=== PATIENT | female | born 1995 | race Caucasian/White ===

== ENCOUNTER 2018-12-31 02:21 | Emergency (ER) | payer OTHER ==
[2018-12-31 02:39] VITALS: BP 123/68; PULSE 98; TEMP 98.2; BMI 25.4
--- NOTE | 2018-12-31 02:53 | PDOC ---
Attending Attestation - Resident Resident Name: BarronHéctor - ED Attending Attestation I have performed the following: I have examined & evaluated the patient, The case was reviewed & discussed with the resident, I agree w/resident's findings & plan - HPI HPI: 12/31/18 06:40 see resident hpi - Physicial Exam PE: 12/31/18 06:40 agree with resident exam - Medical Decision Making 12/31/18 06:41 23-year-old female with reproducible point tenderness to the left lower ribs after coughing Chest x-ray shows no acute abnormality right pain relieved with Motrin DC
[2018-12-31] MEDS ORDERED: IBUPROFEN 600 MG TABLET (FP) PO ONE ×2 (03:09)
--- NOTE | 2018-12-31 03:28 | PDOC ---
History of Present Illness - General Chief Complaint: Pain, Acute Stated Complaint: LEFT SIDE PAIN Time Seen by Provider: 12/31/18 02:52 History Source: Patient Exam Limitations: No Limitations Past History - Past Medical History Allergies/Adverse Reactions: Allergies Allergy/AdvReac Type Severity Reaction Status Date / Time No Known Allergies Allergy Verified 12/31/18 02:34 Home Medications: Ambulatory Orders NK [No Known Home Medication] 05/26/14 - Immunization History Immunization Up to Date: Yes - Psycho Social/Smoking Cessation Hx Smoking History: Never smoked Have you smoked in the past 12 months: No Information on smoking cessation initiated: No Hx Alcohol Use: No Drug/Substance Use Hx: No Substance Use Type: None *Physical Exam - Vital Signs Last Vital Signs Temp Pulse Resp BP Pulse Ox 98.2 F 98 H 20 123/68 99 12/31/18 02:35 12/31/18 02:35 12/31/18 02:35 12/31/18 02:35 12/31/18 02:35 ED Treatment Course - RADIOLOGY Radiology Studies Ordered: Category Date Time Status CHEST PA & LAT [RAD] Stat Radiology 12/31/18 03:09 Ordered Medical Decision Making - Medical Decision Making 12/31/18 03:12 HPI: 23F no PMH presenting with left lower rib pain x 2 days in setting of a week of nonproductive cough. Worse w/ deep breaths and movements. Atraumatic. Denies cp/ sob, rashes, f/c, n/v/d, dysuria/frequency. Regular appetite. Denies PMH PCP - Dr. Rick ASIF Denies Meds Denies smoking, etoh ROS: CONSTITUTIONAL: Denies F / C HEENT: Denies sore throat, rhinorrhea. RESP: Endorses cough nonproductive. Denies SOB CARD: Endorses left rib pain. Denies chest pain, palpitations GI: Denies N / V / D, abdominal pain, bloody stool, inability to tolerate PO : Denies dysuria, hematuria, frequency SKIN: Denies rashes PE: GEN: Well appearing, NAD, comfortable. AAOx3 HEENT: NC/AT, EOMI, PERRLA. No facial asymmetry. Moist mucous membranes, non- erythematous posterior oropharynx w/o exudate. Normal voice. Supple neck w/ FROM. CV: S1/S2, RRR, no m/r/g. +TTP of the left 10/11th rib. LUNG: CTAB, no wheezes, crackles, rales, rhonchi. GI: soft, ndnt, +BS, no guarding, no rebound. No masses. Neg CVAT b/l. EXTREMITIES: 2+ distal pulses. No LE edema. No obvious deformities of all extremities. SKIN: warm, dry, normal turgor PSYCH: normal mood and affect NEURO: Moving all extremities well. MDM: 23F w/ left 10/11th rib pain that is pleuritic w/ +TTP in setting of recent viral syndrome. Most likely viral pleurisy - CXR - motrin - likely dc home w/ pcp f/u 12/31/18 04:08 UPT NEG CXR w/o acute pathology DC as above 12/31/18 04:10 Discharge - Discharge Information Problems reviewed: Yes Clinical Impression/Diagnosis: Viral pleurisy Condition: Stable Disposition: HOME - Admission No - Follow up/Referral Referrals: Daniel Cabrera MD [Primary Care Provider] - - Patient Discharge Instructions Additional Instructions: Take motrin for your pain as directed by the label Drink plenty of fluids Follow up with your primary care doctor in the next 7 days. IMMEDIATELY RETURN TO THE NEAREST EMERGENCY DEPARTMENT IF YOUR SYMPTOMS DO NOT IMPROVE IN 72 HOURS OR YOU EXPERIENCE WORSENING, NEW, OR CONCERNING SYMPTOMS. - Post Discharge Activity
== END 2018-12-31 04:14 | disposition home or self-care (01) ==
LOC: JER 02:21
DX: R09.1 Pleurisy (principal)
CPT/HCPCS: 71046-TC-FY; 84703; 99283-25

== ENCOUNTER 2019-01-01 05:05 | Emergency (ER) | payer OTHER ==
[2019-01-01 05:35] VITALS: BP 121/66; PULSE 98; TEMP 98.9; BMI 25.0
[2019-01-01] MEDS ORDERED: IBUPROFEN 600 MG TABLET (FP) PO ONE ×2 (05:35→05:41)
--- NOTE | 2019-01-01 05:36 | PDOC ---
History of Present Illness - General Chief Complaint: Pain Stated Complaint: PAIN Time Seen by Provider: 01/01/19 05:35 History Source: Patient Exam Limitations: No Limitations - History of Present Illness Initial Comments: 01/04/19 07:35 HPI: 23F no PMH presenting as a revisit with acutely worsening left lower rib pain that prevented the patient from sleeping tonight. The pain is the same as what she came in with last night but now radiates to the shoulder and shoulder blade. Worse w/ deep breaths. Non-positional. Atraumatic. Endorses sob 2/2 pleuritic pain. Denies cp/palpitations, n/v. Not on ocp, no personal or family hx VTE. Pt states motrin alleviated the symptoms but was unable to apple picker after ED discharge. Denies PMH PCP - Dr. Rick ASIF Denies Meds Denies smoking, etoh Past History - Past Medical History Allergies/Adverse Reactions: Allergies Allergy/AdvReac Type Severity Reaction Status Date / Time No Known Allergies Allergy Verified 01/01/19 05:25 Home Medications: Ambulatory Orders Acetaminophen [Tylenol] 650 mg PO PRN 01/01/19 Ibuprofen [Motrin -] 600 mg PO TID #21 tablet 01/01/19 COPD: No - Immunization History Immunization Up to Date: Yes - Psycho Social/Smoking Cessation Hx Smoking History: Never smoked Have you smoked in the past 12 months: No Information on smoking cessation initiated: No Hx Alcohol Use: No Drug/Substance Use Hx: No Substance Use Type: None Review of Systems - Review of Systems Able to Perform ROS?: Yes Comments:: 01/04/19 07:36 ROS: CONSTITUTIONAL: Denies F / C HEENT: Denies sore throat, rhinorrhea. RESP: Endorses cough nonproductive. Endorses SOB (2/2 pain) CARD: Endorses left rib pain. Denies chest pain, palpitations GI: Denies N / V / D, abdominal pain, bloody stool, inability to tolerate PO : Denies dysuria, hematuria, frequency SKIN: Denies rashes Is the patient limited Mongolian proficient: No *Physical Exam - Vital Signs Last Vital Signs Temp Pulse Resp BP Pulse Ox 98.9 F 98 H 22 H 121/66 100 01/01/19 05:25 01/01/19 05:25 01/01/19 05:25 01/01/19 05:25 01/01/19 05:25 - Physical Exam Comments: 01/04/19 07:36 PE: GEN: Well appearing, NAD, comfortable. AAOx3 HEENT: NC/AT, EOMI, PERRLA. No facial asymmetry. Moist mucous membranes, non- erythematous posterior oropharynx w/o exudate. Normal voice. Supple neck w/ FROM. CV: S1/S2, RRR, no m/r/g. +TTP of the left 10/11th rib. LUNG: CTAB, no wheezes, crackles, rales, rhonchi. GI: soft, ndnt, +BS, no guarding, no rebound. No masses. Neg CVAT b/l. EXTREMITIES: No obvious deformities of all extremities. SKIN: warm, dry, normal turgor PSYCH: tearful NEURO: Moving all extremities well. Medical Decision Making - Medical Decision Making 01/01/19 05:47 MDM: 23F revisit for acute worsening left 10/11th rib pain now radiating to shoulder blade and shoulder. pleuritic, +TTP, reproducible, recent viral syndrome. Pain resolved w/ NSAIDs but pt unable to apple picker more after ED DC. Considering pericarditis vs viral pleurisy. Unlikely PTX, PE, or EBV given history. - EKG - motrin - reassess EKG 01/01/19 05:47 HR 89 ME 130 QRS 70 QTc 455 NSR, low voltage 01/01/19 06:15 Pain is responding to motrin, will reassess Unlikely pericarditis given EKG 01/01/19 06:40 Pt feeling better Normal RR DC home w/ pcp f/u and strict return precautions Discharge - Discharge Information Problems reviewed: Yes Clinical Impression/Diagnosis: Viral pleurisy Condition: Stable Disposition: HOME - Admission No - Additional Discharge Information Prescriptions: Ibuprofen [Motrin -] 600 mg PO TID #21 tablet - Follow up/Referral Referrals: Daniel Cabrera MD [Primary Care Provider] - - Patient Discharge Instructions Additional Instructions: We sent IBUPROFEN to your pharmacy. Please pick it up and take as prescribed: 600mg three times a day (every 8 hours). You received your first dose 01/01/19 at 5:45am. Take with food. Drink plenty of fluid. Follow up with your Primary Care Doctor in the next 2-4 days. IMMEDIATELY RETURN TO THE NEAREST EMERGENCY DEPARTMENT IF YOU EXPERIENCE ANY OF THE FOLLOWING: - WORSENING SYMPTOMS - PAIN THAT DOES NOT IMPROVE - SHORTNESS OF BREATH OR CHEST PAIN - SEVERE ABDOMINAL PAIN - ANYTHING THAT CONCERNS YOU - Post Discharge Activity Work/Back to School Note: Back to Work, Parent(s) Back to Work Note
--- NOTE | 2019-01-01 06:56 | PDOC ---
Attending Attestation - Resident Resident Name: Héctor Barron - ED Attending Attestation I have performed the following: I have examined & evaluated the patient, The case was reviewed & discussed with the resident, I agree w/resident's findings & plan, Exceptions are as noted - HPI HPI: 01/01/19 07:28 Agree with resident HPI - Physicial Exam PE: 01/01/19 07:28 Agree with resident exam - Medical Decision Making 01/01/19 07:28 Repeat visit in 2 days for same complaint Discharged yesterday with diagnosis of viral pleurisy Patient was unable to self-medicate as instructed since last discharge Today with likely same etiology, but consider pericarditis, PE unlikely, little clinical suspicion, PERC neg, cxr from yesterday with good markings, good BS on exam, no splenomegaly on exam, no hx consistent with mono. f/u ekg analgesia re-eval Pain significantly improved with motrin EKG unremarkable DC will f/u with pcp and take NSAIDs for pain
--- NOTE | 2019-01-01 13:00 | EKG ---
Test Reason : Blood Pressure : / mmHG Vent. Rate : 089 BPM Atrial Rate : 089 BPM P-R Int : 130 ms QRS Dur : 070 ms QT Int : 374 ms P-R-T Axes : 068 049 016 degrees QTc Int : 455 ms NORMAL SINUS RHYTHM LOW VOLTAGE QRS NONSPECIFIC ST ABNORMALITY NO PREVIOUS ECGS AVAILABLE Confirmed by ARNAUD RAHMAN MD ([id number]) on 01/01/2019 1:00:09 PM Referred By: Confirmed By:ARNAUD RAHMAN MD
== END 2019-01-01 06:41 | disposition home or self-care (01) ==
LOC: JER 05:05
DX: R09.1 Pleurisy (principal); B97.89 Other viral agents as the cause of diseases classified elsewhere
CPT/HCPCS: 93005; 93010; 99282-25

== ENCOUNTER 2022-12-02 16:28 | Emergency (ER) | payer OTHER ==
[2022-12-02 16:59] VITALS: BP 124/73; PULSE 105; RESP 16; TEMP 98.1; BMI 39.0
[2022-12-02] MEDS ORDERED: DIPHTH,PERTUSS(ACELL),TET 0.5 ML DISP.SYRIN IM ONE ×2 (17:00→17:08)
== END 2022-12-02 17:32 | disposition home or self-care (01) ==
LOC: FER 16:28
PROC: 3E0234Z Introduction of Serum, Toxoid and Vaccine into Muscle, Percutaneous Approach (ICD-10-PCS; principal; 2022-12-02)
DX: S80.211A Abrasion, right knee, initial encounter (principal); W01.0XXA Fall on same level from slipping, tripping and stumbling without subsequent striking against object, initial encounter
CPT/HCPCS: 90471; 90715; 99282-25